=== PATIENT | male | born 1950 | race Caucasian/White ===

== ENCOUNTER 2024-05-11 13:51 | Outpatient (OUT) | payer MEDICARE, OTHER, SELFPAY ==
--- NOTE | 2024-05-11 15:08 | P.CN_ITS ---
Consult Note: HPI Data of Consult Patient: new to practice Consult date: 05/11/24 Requesting Physician: J Carlos Arriola MD Primary Care Provider: Non-Staff Physician, Consult Narrative Reason for consult: low back, right hip and leg pain Narrative: 74yom who presents for evaluation. worsening right back, hip, leg pain that was initially worked up for right hip disease, but now thought to be more spinal related. imaging reviewed, which shows moderate to severe stenosis at l4-5 and l5-s1. has engaged in a series of provider directed home exercises >6 weeks, as well as physical therapy, without lasting benefit. uses otc pain meds as needed. denies adverse med side effects. cc:: CC: J Carlos Arriola MD Review of Systems ROS Status of ROS 10 or more systems reviewed and unremark able except as noted in history and below Meds Home Medications and Allergies Home Medications ?Medication ?Instructions ?Recorded ?Confirmed ?Type amantadine HCl 100 mg capsule 100 mg PO BID 05/11/24 05/11/24 History carbidopa 25 mg-levodopa 100 mg 1 tab PO QID 05/11/24 05/11/24 History tablet (Sinemet) lansoprazole 30 mg capsule,delayed 30 mg PO DAILY 05/11/24 05/11/24 History release magnesium 250 mg tablet 250 mg PO DAILY 05/11/24 05/11/24 History mirtazapine 15 mg tablet 15 mg PO DAILY 05/11/24 05/11/24 History ropinirole 3 mg tablet 6 mg PO BID 05/11/24 05/11/24 History Allergies Allergy/AdvReac Type Severity Reaction Status Date / Time latex Allergy Unknown blisters Verified 05/11/24 15:10 Penicillins Allergy Unknown Rash Verified 05/11/24 15:10 mycins Allergy Unknown Unknown Uncoded 05/11/24 15:10 Exam Narrative Exam Narrative: Psych-alert and oriented x 3. Attentive and appropriate, constitutionally normal, displays normal mood and affect per situation. There are no obvious deficits in memory, reasoning, or intellect.? Skin-no obvious rashes, bruising, erythema noted to the patient's area of pain.? Extremities- extremities are warm with minimal edema and palpable pulses. Lumbar-tenderness to palpation noted in the lumbar spine and paraspinal musculature. Pain is not elicited with flexion, extension, and lateral rotation of the lumbar spine. Range of motion is not diminished with these motions. Facet loading maneuvers are negative.? Strength-noted to be unremarkable with the exception of decreased strength rated at 4 out of 5 in right quadriceps femoris, anterior tibialis. Sensory-no notable sensory deficits in the bilateral lower extremities to touch or pinprick in all dermatomal distributions with the exception to decreased sensation to the right L4, 5 dermatomal distribution Coordination remains intact.? Gait remains non-antalgic. Assessment and Plan Assessment and Plan (1) Lumbar stenosis with neurogenic claudication: Plan 74yom who presents for evaluation. failed conservative measures, as noted. imaging reviewed, as noted. given symptoms and imaging, prudent to attempt right l4-5, l5-s1 tfesi under fluoroscopic guidance. he is in agreement. meds reviewed, no changes. follow up after procedure.
== END 2024-05-11 13:52 | disposition home or self-care (01) ==
LOC: PM 13:53
PROVIDERS: Visit Provider Anesthesiology
DX: M48.062 Spinal stenosis, lumbar region with neurogenic claudication (principal)
CPT/HCPCS: G0463

== ENCOUNTER 2024-05-18 09:41 | Day surgery (SDC) | payer MEDICARE, OTHER, SELFPAY ==
--- OUTSIDE RECORDS SUMMARY | 2024-05-18 10:01 | XMS_ITS | CCD ---
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 Name Role Phone Obdulio Fitzpatrick Attending Unavaila Obdulio Ko Admitting Unavaila ble Provider, None Primary Care Unavailable Provider, None Primary Care Unavailable Malvin Horvath MD Attending Unavaila Malvin Rodríguez MD Admitting Unavaila OMAR Lewis Attending Unavailable OMAR ROLAND Referring Unavailable OMAR ROLAND Referring Unavailable OMAR ROLAND Referring Unavailable OMAR ROLAND Attending Unavailable Allergies Allergy Classification Reported Allergen(s) Allergy Type Date of Onset Reaction(s) Facility (1 source) Erythromycin; Translations: [erythromycin] Drug Allergy [facility] Repository (1 source) Penicillin; Translations: [penicillin] Drug Allergy [facility] Repository Results Test Name Value Interpretation Reference Range Facil ity MR LUMBAR SPINE WO CONTRASTo n 05-05-2024 MR LUMBAR SPINE WO CONTRAST EXAMINATION: MR LUMBAR SPINE WO CONTRAST HISTORY: Chronic but worsening low back pain. Right hip pain. TECHNIQUE: Routine lumbosacral spine MR protocol without gadolinium. CONTRAST: None. COMPARISON: Radiographs 04/23/2024. RESULT: Counting reference: Lumbosacral junction. For the purposes of this report, L5-S1 is considered the last well-formed disc space. 5 lumbar type vertebral bodies. Alignment: Mild to moderate levoscoliosis of the lumbar spine. Grade 1 anterolisthesis of L5 on S1 measuring around 7 mm. Bone marrow signal: No evidence for recent fracture. Chronic bilateral L5 pars defects. Endplate degenerative signal especially at L4-L5. Probable small hemangioma at L2. Conus: The conus is within normal limits of signal intensity and morphology. Paraspinal soft tissues: Small simple appearing T2 hyperintense left lower pole renal cyst. Tiny cysts within the partially imaged liver. Colonic diverticulosis. Lower thoracic spine: Visualized lower thoracic canal and foramina without significant narrowing. T12-L1: No significant canal or foraminal narrowing. L1-L2: No significant canal or foraminal narrowing. L2-L3: Broad-based disc bulge. Endplate osteophytes. Facet degenerative changes. No significant canal or foraminal narrowing. L3-L4: Broad-based disc bulge. Endplate osteophytes. Facet degenerative changes. Mild bilateral foraminal narrowing without significant canal narrowing. L4-L5: Broad-based disc bulge. Endplate osteophytes. Facet degenerative changes. Moderate to severe right foraminal narrowing, mild left foraminal narrowing, without significant canal narrowing. L5-S1: Anterolisthesis with disc uncovering. Annular fissure. Broad-based disc with possible superimposed protrusion in the right subarticular region. Facet degenerative changes. Moderate to severe right foraminal narrowing, mild left foraminal narrowing, without significant canal narrowing. Sacrum and iliac wings: The visualized sacrum and iliac wings are within normal limits. IMPRESSION: Multilevel degenerative changes lumbar spine as discussed. Grade 1 anterolisthesis of L5 on S1 secondary to chronic bilateral L5 pars defects. ELECTRONICALLY SIGNED BY: Cody Roy MD Normal Not Available Provider [place] 04-02-2024 Provider Orders [id number]#1.0 0[facility] Provider [place] 03-04-2024 Provider Orders [id number]#1.[address] [place] [address] Coding Summaryon 02-24-2024 [facility] TtdlemuxVTg4nHz+PGhlYW Q+PH0VYRDbS43paLKnxR6k Q3QMQDpSStkpHWNZTDrYMy UedpIxKN2ejMXyEZIs IC8+NF6jRBLgIlnnjPUzj0 F9uJE2Q30onv7wGUiylNW4 PJEtUcCpwucxl2rdjYc7ID cuNmluOyBt JRCbzN30HPS6rN78Gd42vW ZnuORdb8jhiEv5MdMgHNMl QEW6rKvqDIwpp6MzMHLgY2 2dvHZhn3S5 YVCgqRmmtJSzAlFymGL2vR 7dAHyeleuav4jlifaqMtk2 mf52pKXdq4L4cQC5X3Mquc G8IIBhyRSg WpkwuOKCfN4nbmueu5txiz hcEgItKBJjKMl2SAh8GRZj pYgeQxMiFR73YGH1VWAwkn UyK0UcHZRq oPeeFlI8t3Q0Yf6HC8ZCAt cmF6HJODDDFWsalRA+PC90 zg59K3NpBcqiHxl9LSUzJE W9nUC7fO6b FKBrKUssb7G8lXW7A6Yjgi Gylm7it8hnSPUhDQcuJ67m yGCwy3D8HRVnbBU8WKSxeF hbSqUceQ36 Oyc+WNPpvXrkn9RjHpxfu7 lqa6kewRb3PsqkWLGyyuEs lMfjSMF7j4MnVo4zJKPglX Y7iYX0nF1h OyPaTqH5ISxuF163OnWhgQ HmQmivV58tJ1IojHZ+PHRy Pkl3PYTkmOamCU4eZ4WbCB RpbmctbGVm bYxnPB4sMRBbldrxTGUviP 5gZNFgJ7c6PjHfMyF5JRdy L8XvILJilzyyQs00mT2kNi DuVtN6RChh I7EoeyU6HSTbbVGmOFnxAM N7Z51dt4P2TXXpSTAtGUM2 aUK9hJ8frXfsmmdhaJRapA sgdmVydGlj SPtkLVcpL927RZVwyYogMj NvZGluZyBEYXRlOiAgMDYv MDMvMjAyNDwvdGQ+PHRkIH K3fDtcTCEc jKVoXNxdYo9npLvzhVvtDM 5jKBIvpeazRYJftH6jREMf lSXavKrtEB8cKLBezazsh5 27VbKhZIB3 IFEtqSQeQ1LznS3nBaPgEA MwTROwS2NmiKQrKDybD195 WJtpVpJ6NBWnnyLgY8IrCR FsaWduOiB0 i9Q9Qa4Wd3XhgwlcK4IerR DtKbSoRygqOFr6K2JiAtvj dHI+TO15CUSbRO54PZm6MW Q8nArsPDim NULiK9PciK8tMkEiDOEnJT RkOyc+PHRhYmxlIHdpZHRo QTfnOCGiQqVzhWnkVW8jTf 9yZGVyLWNv uIpqmSKtHpSet3izZMUxBQ fxHS9gtRhoW0KlkQT7KXJr u3z7Qq55G44bH7QifSY+PG HqpFO2hHQ0 dM4nUyCmLwJ7YTrgQ016Nr AraGYoLvxzr9mzf9trvDv0 LiF6KRCkszMxbPphRJB4s4 NsSh72C21c IHdpZHRoPSIxNSUiIHZhbG bdaf8mwO4zBz0+PGNvbCB3 jON1jR4xDrPvIxD4ZCpvM5 49InRvcCIv Coyrz9bqm0kquMz0KoRuDZ QbowDajPguUTF7b5YhSx16 N4KqwKkzh6YeMef5gi08pU Ace5E3sYJ8 U5KsVZJtfnzhwIOpyRnoBG 5iCLJwqkurWXTlrF0bRSTh A6x0CuZdNgJ8ELzvJ0Gaxm B7LASogWEh DBPfkUCXpR3iyaupf7vtci slBcXlOFCzGHb3GQr8VTCj lScjQtWuQKG4WtY3IYI4qC GjqC8dfRbt dntvxJ8dZnb+ZYX1zCJhoW XLET9vOdblfXF+PHRkIHN0 kVkfPKrvCPTirI6oFWBxR0 i6MhNrKaA7 ACzpX5RitfN3NXSbgWKyIR PlhHCQtU6xhfhkw0nramxn XxHoNHClQBy6KOb8NPHsqW duOiBsZWZ0 PoF2IJY8qFTvcM5juZdidd rjiD5uAis+QmlydGggRGF0 FLo6N6QeMsw0XHIhbWwwQV 0ncGFkZGlu Ie1flSaygCiwRA4oMRMxcu hoh385GtKxf8mgTTNdkEXn ZPdiWYE1T53yq0Z1ATZaFD ChQYF5aTY1 eJ8xwQyxdmezfVPghVvila SjdIbcINbwNVlhN743GVHp mBuuLhBgFUa3B4XfXwn7QO OjtPqsZM8w tGCeOEmaTt5lqCczbWfuBZ 3gQIKccbfis449QzOzx3ae VQAtyVZsDLliBSA1Z89gr9 P7KWUzKCZf CZE7iFE8lO5rzYddfsweiQ VmdDsgdmVydGljYWwtYWxp D928UCWygVhsDmLfsDr6I4 VcJrq3UIDh qOxoAK1gbVMuOJlaWr2ioD lmiMrsTG0lWKUpjvkgg074 QtVcn8uaUIXtpNVrXUubAD N0S52ke2M0 STWuTZZhVEL9eSW9uO6nnK lnbjogbGVmdDsgdmVydGlj FRzwTOjkI917IRQjhBbbUp BhdGllbnQg OFvfVUh3S3VhDespmHX+PC 51XGJcPA38nQDbrUGhh8am qFf2JtXuVOZjCEZ9oBvbMT fyi1MlYJBj T13xrUAzv5L8MYYcoMaomS QzIeCylVX8zK8aIDfgyvjk j3bmgbcaBgono9dokq26dX 31T49tHRct ZHRoPSIzMCUiIHZhbGlnbj 1duK1fWq6+KGSpiNO8gIE0 hU4tMNTkPsG5ZYzcJ453Kf RvcCIvPjxj g3orl3wicVq7McN6HPPybi PwjZezEOX1t1OvIl66P76v IHdpZHRoPSIyMCUiIHZhbG xnod0fzX6b Ii8+ZIRviZC8oVJ1qU4xXz FqYpG7LNkqY938PdAlvCTo UzpmV43rO4MbmDR+PHRyPj v0YXPyiVee IP7yqAVtNIkbBn5sAPX4Bm CgXnWjOLlyC1RlRQDgjrud cpjjeAT0DEYwDNOshU23Jv 9udDogMTBw tFSFhN9cwgscj8qvyxqxSb MxOFXaIIf4DOz7HQMdtUjl BdMiAEJ6LcU1EML9zZFrkC 1hbGlnbjog iA0dZ1VfMUEgsbqsDg54xK 2lWeYrWsP0SIalPvs+U0lO Z7qPALIvEBYLP6nTLsMtS3 dFTjwvdGQ+ DUZwIMV6yDudOWrqCDTttZ 3sENXtT6v4EbTcDhW2VCbg A6GrFTOhlsboUy28iF5tAu PuPvQ7BDiv M1RgwaL0OXWloKKiJLjfQK M6L56gv0B0ZMYhLMAiPLQ2 nZM0tB0kbEratrakwSUzfF sgdmVydGlj XMpdNSbnZ299PHVbeAiqLy Y4HqNmQrK1NIU7H8HhLau8 LCZoqUsgTI9rsYFfXNctQz 1yaWdodDog WL6kHRQylzemKVLmkS1eTA IdhMOauOcgJB4aDJXbsvet q191PrVhULJ6EHHgaZGgO0 LcsG6cNfLq TNHnIEDkY5WbnSRcTVscP1 76OThoFjG8XBDyfiFyH2Jo JQGvgHmoYsM9t1K1Fw51Qb BZZWFyczwv dGQ+ZSBwFLN3eAthMYveVQ XtdB6gXYLmV2y1UtUlHoN1 RIreH2ZyAYSdtrplVr07hB 3eZaOiLrM0 YUktX2WuypA3FAYknZKkCT qkSEL2H22ph4D4RQRfOJDr IJY5cSX1wN8wmAxnsnctoE VmdDsgdmVy zXecXSksVUfzR244WSCedU wkOz3WUUG2G2EtAxg1EFAs kJjoMD6uxMVyBAagBm4rdM ormTvhJT4x PAUjmnofAENudK5iIOZxgS TtnYzdDS6kSMNbxdwlw794 SjIhALD8RZGtnOFvQ2ZcrX 9yOiAjMDAw PGAgV0BmbPBwLRntX066ML ubFdI6GKYrgiYqX5QiECYh mRbtZrE7c6W7Xs2UFXM2ru HgmwiqM1E4 mNR5sIIxoQprpIN+PC90cj 74J5VsTdyrPpl7NBFkIHO4 aJR0wL7nVMRgJTnqe2M8lT A7U1EarfQr xu3on7yxYQVlOAlkY90qaQ Kls6B4DVBliDM0GBSzlRzu WmNqgD24Yxq+PGNvbGdyb3 VrQieeq8kn x7gvuHl9LcOyUNIzbbWeoO fzPON1b4YlMl93G04qNUpy ZHRoPSIzMCUiIHZhbGlnbj 3phW2dIb4+ WWYohKV8pAA8vS2wOdXoCo F0FOvzW784BpGqeGVfDlub u3whe8driJu2ZaBpFIBkdv FsaWduPSJ0 g3WnKl01Q8TxsOdyh4MsIp v7yp56nWDry5Y1aAB3P8Br YKJoidwifBPscBthEP2tBH BpbjtwYWRk zM7dETBkN9b6JePmYyQ5VJ cvU0IjguW3VRFepQDtDOQr jUVBwF1ofqcgd5zneghlEp AwMDAwMDt0 ZCv9BHXmdHdnMfAeLKY6Je G4IKN6dLOsiS5qyLbdcget vI2uHru+UOy5k6wyqOQcZY 1veEH2UI73 ZE84zBCcr1D7tLI9E9ScPP CxypayqmhxqHG3DHGeJXJk qR40Tw6liXasKc4nKRAnSO T6RKIpyHLv M9FliJ2pKoUuFPSeIPVqF8 PhcXGcBLxwJ060NClpOuI9 TZJtefQcX7ReOIRwyFwaQq H7m0Z3Ij6W WR70CR71XY97dKLim0X0kM C6D8TdTLQiwkdrpmopfWD9 XANpOLMpnV18Oe9qqSjbWu 5pDZRlGXO2 YEPbuFLvX6UzrL6cIvBgMI RnGIVjY9JriGNxLFmdH938 ECjsNvE0JMJczoRpG7HpEC FsaWduOiB0 q6X3Nw9UUh03SS67FA84qI Fwp5Y8hWX4D5FdVGEgntdz hnmtxNZ5MFQkDKMpxT38Yd 1owXsbHw9d SSZxIPT2RIVxuIMxH1BvnW 0dEqAwJEItBLQxN8EioBOb MSmlN032DYtuVoH6GVEhke XtQ5KfIKGt xIovWkU1k1T7Bh3YSZyzdc i4Z8GmVdatcNP+CX12HKDf UM55zFEokRKbv9bjzXc0Dn EwMCUnIHN0 eWx (more content not included)... [facility] Provider [place] 02-14-2024 Provider Orders [id number]#1.0 [address] [facility] Coding Summaryon 05-08-2023 Coding Summary [employer] 64 SnmtydukQGx8lRk+PGhlYW Q+VD4ULQCeF50jaUEztT5j J1ZTAPiSFfcwRYYPJWdTBc VggrCvWT5seSLyLEMo IC8+BZ4nKLTlYlmlkJMja8 D1aGQ8I62lhf5bWMzhiAI5 XFJoKuAuzcfrt2xnzCi3IG cuNmluOyBt JCSpzU24JAP7gO20Hh78cD XkcTJsb6hjaLx2SkJwZTFr KHG1qZdkDAgfl2RnAPAfH8 2jaKBwe9L8 KLXqpBvrrCJnWxTuqDP2yX 5oVBfymewph1bkjqwnLyu2 su41eDVnn5I0wRC7W9Jhrt D6OSWouWXt JmbqgLCYpU2zhnlvh3xmfw gvQoKaVKJaSFa9NZb9FCYq qRkaCtAcXV81EXU1WBUidm GeT2XlNQTq iVxlRmP9f0Z3Hy0KW5MDGl htU8MQEKUPZWfrcUC+PC90 wz99L0GiNgoyNoe8WDAiWD I1cTR1eA8x DULbTNerw4O7oLW0E6Rvqa Uios3dt2nsDNEaUCjrC95u tELtz6D4VKPcqBU0VVMmfQ elOxKhuC90 Oyc+ZKHswJwil1OoQsfua1 zhc0csfBc4YypeHZBgntTh sKdsMZM7e9DqNg5eSMYunS V1lKY1oB1s LjRkLcE0IHqbV102KoVrqU VtLwqwD67fP3YnsAD+PHRy Khf3EZKnnLowXT3fT9GoUE RpbmctbGVm pIcjYH9dKONssymuWUZbsY 4wGBWaW2s4FpLxIfA0LDbw T3KmIPEwoxepNc64jN6fYu AaPoG8XHnm R7QkqfN8DXUoaBCfBNjgGD J1R61fs0I4YTOwYVPvVHH2 iDZ9bQ2geBqddbimaEYrfJ sgdmVydGlj GOtwICklM420XIVetKcvXa NvZGluZyBEYXRlOiAgMDgv MTYvMjAyMzwvdGQ+PHRkIH D8xFapYEHv wTPeKQjcNc1ulAmayCdlDM 0wUWIttovuPZWjxD6rWITb zLQoxDgmLO9eQHDfkunre6 22KbNxAXH9 GZHyeQKzH6EcoE8qWeSvHQ QpAIPvV7AuoJVzNXntV368 BPhsAtO1BVTkdtMwU7EnAZ FsaWduOiB0 y2R2Sz2We5HapbniF0MpzD JqIfClRdgaNQk5W9XcZdla dHI+LM49FHUrCN79RDi9WA U8qJpnCElj WLBtE7ClkK5aJyZwCYYtDR RkOyc+PHRhYmxlIHdpZHRo TNicZTVrOrSgtTnySC3dJo 9yZGVyLWNv kAzthTEtZoNic2huICEqGM vnBU3owAlgH9AgtZS0ZZJo o0r7Py27Y52fS9KidWW+PG MlmVZ0eKN3 kN3kOzEaFiM7HYydL301Ao KpxZQjQkvfl1tuc4wxtHv1 KaA6AGKypmUepHfbEJZ9r8 MnUi15N19m IHdpZHRoPSIxNSUiIHZhbG snss7hrL2gFc2+PGNvbCB3 bRN8sG3oWiDlEpW4GCfoR4 49InRvcCIv Wlxjk5cit4cmbRc6LvFrJH VdfaGvbUbiSMC2q8TjIg83 T5EdxYyrc7TnGuf4vt02qT Gts3Z0sIA8 Z8ZiPHSeemfkkHApqFmmUV 7gIFBzpjneHHDenO0dIURb H3a5MgHgStA1ZXdxR6Vtmo S7GQMbvIXl KZPllZWRuW0bnagyx6gyco wtCoUwOFXfWUb1WXu4UMLs cXgsCyYbBPB4QcN1OAC0cK EowY6czGpk gcazvV2gOvp+CLB4pOTnlA SLIF6yZyaphEL+PHRkIHN0 jSvyFGwrWTVuuQ2iHOIdG1 o5AdLgXcF9 NKduK7RxlmM6KUIchBUkQX OnjWSTzG6lewomb5odqcpi HoLaSFCdLFi2FGg7CNBerD duOiBsZWZ0 DwQ7KEX7eFOefM9ofWcybu zbvJ5bLcp+QmlydGggRGF0 TIt0M7CtBzj0KFIjtFlgRR 0ncGFkZGlu Lb8rlYmoxCvaSB1nXDNngn vge432HcWnd7hzPWHqqSGr AHqjAMF9X69lb1C0ZFReCR QkUDA3mZM3 eF3zgZcfxiryfLIguMplfk XrvBbjUVkiNJjwN921PYGs jAlgMrHdNDj1J2DwPmv1UQ ImrLdnEZ1i bAMzHHfjXj6ooFvlaZajOW 2aURLdenixz761SkKih1om LFPjsGHkKVclWOL9M27oy4 E3OXAdHQOu NIK3oPZ5lO2ydSjhiayecX VmdDsgdmVydGljYWwtYWxp R912WKDdoOmyVmIpkVq1G1 SpZsi1FKJq mOyvQC6sqVYbGKibBo6ijH ytnJyiBN0eGZAapzzvj172 LzQhk4vpSLYqeVYlYXphJN Q4Y65ff0P2 GFYbZLTwXNZ7hZJ4xY7xzH lnbjogbGVmdDsgdmVydGlj UXshYFqlF351WDRqhWoxFc BhdGllbnQg NNtlHTg1H4HjOhrwuNR+PC 14RXQrBM56xEUutINdd2ku cHp3PaUbZZYrZQV7sYqoTP vlb8WcUNFk X58qaLQdv9X0BCFamJhndJ TpPtBjmPJ2dQ7nEXgyizoa q5jshkziVuqhp3dkmz72dI 58V12dGLqr ZHRoPSIzMCUiIHZhbGlnbj 3wyQ7dTs8+WEYozOL8wNR4 iU8dBJMkRvJ7BUhcS442Hd RvcCIvPjxj f4iuz7avzTf7QaT8JIJrqp DweJmmIPJ2u1GzQm77T93o IHdpZHRoPSIyMCUiIHZhbG upvw3feB3g Ii8+PXTxeRZ8vDH7sB5eAf HtWbI1IOuxZ940QhCsvOEh PfscM44zO0KmwSX+PHRyPj z2HNVmiOrv VM3uzIRdPFmrKk6lPEW8Px OwJiJkGTaqK2GvHUGxdqyj cheymWK1MVKgYQXpmC75Mb 9udDogMTBw dXLCgD1ghpllw2brcychQx QwIIGeVEm7JHl8NCQxqBzz AjChIGD5BuF7DDS4eAMslV 1hbGlnbjog nY4qU0YgEPHlocosYg43dZ 1sKlJsCmY8ZNxsAdq+U0lO T1uSKTYtMHSIN8yOPrJxJ3 dFTjwvdGQ+ KZRkZUG5mFqvKMwcZJVthU 0fJSCdV5w0GhTfBgP9ENyl M4XsKPKnitymDm05rZ4aAq GbEkB3DLmq L8XcswI3EBWfeQTxKDeiOE S7S51hp8S0IAHhYOQeWRO4 mNT8qJ5gxXoucvuxhXYkpB sgdmVydGlj LTqcQGefJ018EPCeuTmfDq O9NjSaKsP2LCU6J7QzGpq7 GDLiuIbpIX2ujGBrDHzaPm 1yaWdodDog GM7fCWZbuwvqMENntI8pBC QxlQBuyCbnNC9nVKNgpvmy y036FjBwJCG3YZQzpVZoG8 BenX8xEgAy XTOhZQXkD4WonKVgXSilU8 52ESncQxO2OWIoutPyM3Lx RWSxmTqmNpW2g5B9Tc66CU BZZWFyczwv dGQ+HEOzUZS9aCuvYWniSI PkoY8dPBIeE3e0SqNyZyT0 JNvgM8OkMAUuymrxVx39eQ 4gEoZjQnA6 WWvzQ2GcumQ7LBNdeQJeDE qoEZD4Z33wz1I7HWApWVQw NHR0hAP9gN2adGrvtfcwiS VmdDsgdmVy aVxgWCfiWFzqK251KPJwzX scRa5JICS8N9LlZwj9UTBb eHmwQK5ozGQcBBjsUi5mbN hrgYyuKM2b MFTidmgxPGKjlF3sYTZmkQ SrpJiqQM1uFCBejzbag889 AsQvIRP3RKWsxESzL3GbgP 9yOiAjMDAw HRBfR1QrfOKbKKsgJ066YD skYqD4LZRyliQqO3KtIWJx zUytDtT1i6M0Om2QGKhafY Q+VJ58io45 V4VpViajXio6IOVvDJO5yZ J2hQ4sELMmBPcwe0K5pGH4 X0ZznkZvpg5wt6vgFXMmIM fqG18nuFFq q5M9UDAvhYY9GSVgoQneEk OgnV32Zji+CEKziWryf2Qv Ksgyn6pew7afkCc3CiKgUS IgdmFsaWdu HQP1q7UmFt80O82hHMmrHI TsSQKaUIZwFHMqnGppaq0m dN1dGq1+PWMvmZF3mAO2wG 2rKeWiWbB3 AAuvS289XnAjvABbNejpb5 ljd6kxgVf6AhGjIPShfnZl hKhcWSH1h5XxAz89U0GwxD ovd4RqHdt2 mq47mSUsq1L9aDX0K1QgQZ JkgzhvpKJhuDjcHE4mUWZp rvxeYCWsfM7rOZXmT1b4Rv QsVnB5XHec D2NljhO7TVFfaVUcDDTvdF EAsK7hviucw9adprrmZhRg BLKnJCz5OOx6HTObxUudZn GrKIY3YbY4 PBD2qVZgcQ5idOqepiwylN 9wOyc+LQt2w2wlhYRfVK5k dIZ6II11TI51fWYgp7P7lV Q4Z7LiMJRz jpjypxfdfEE8VTFoEJOobR 97Kw9lkNgqMo0bNTOtUFQ3 QTPaaXYnM0JtaR8tHdWnXQ RwZCMzT5Yl qMWrCXzzJ714VHeyNcV6EX QinlJyG5DeXLXazDthKwH0 c9Z0Fw3DMU15EP88ZS59lP Fsn3E4bCB1 C3OrGVQcbwqnodfvbSZ6KN ZfNHBjfK42Ga2iaJcjLc4h CBZhGZS9WZOcdEPqW9HvkF 9yOiAjMDAw SKXeA0GiyBGzMAkkS120ZP uhOsQ4KQOzqwBxC4CeOPMx pJfkJrI8x6I4Rj6ZQi54MB 11BY65rHSf g2C4qTU2S3WbUZBcqlaowx hbiOO0RLJfIBHcrD81Lq2m dFrvJe6wXUNyJKM1ZELfyG NdO4IqkB1x MvSuSHNuZURsQ5BhsSBgQX dbG672NOhuWtX8LWAaszHu O7HsBAJwhDmeBnM3q8P9Sp 0DBAnzsqv0 P7PeRsleaOY+RU52TABxVC 81zGLnoIUky7vthZq7XoUa GRPpXNO0iZfoJDujt2HyMU OzZ75pzUXu c2U (more content not included)... Normal [facility] ED Clinical Summaryon 2022 ED Clinical Summary [facility] ? Urgent Care [address] [place] [address] Clinical Summary PERSON INFORMATION Name: MERY MCALLISTER Age: 73 Years Sex: MALE : 1950 MRN: Acct#: Visit Reason: Foot pain-swelling; RT FOOT PAIN Arrival: 04/29/2023 12:12:18 Discharge: 04/29/2023 13:44:00 LOS: 000 01:32 Check In: 04/29/2023 12:12:18 Checkout: 04/29/2023 13:44:00 Address: [address] [place] [id number] PCP: Provider, Unlisted PROVIDER INFORMATION Provider Role Assigned Unassigned Antonia RN, [place] ED Nurse 04/29/2023 12:13:26 Britt MACKEY, Obdulio Coy ED PA 04/29/2023 12:14:44 VITALS INFORMATION Vital Sign Triage Latest Temperature Tympanic Temperature Temporal Artery Pulse Rate O2 Sat 99 % 99 % Respiratory Rate Blood Pressure /76 mmHg /76 mmHg MEDICAL INFORMATION Medications Given: Allergy Information: penicillin; erythromycin PHYSICIAN DOCUMENTATION DISCHARGE INFORMATION: Discharge Disposition: Home Discharge Location: Home PATIENT EDUCATION INFORMATION Instructions: RICE Therapy for Routine Care of Injuries; Tendinitis; Hypertension, Adult Follow-Up: With: Address: When: BLAIR WELLS DO [address] [facility] [address] [place], [place] [id number] Within 3 to 5 days Comments: Diagnosis is swelling of the right foot with component of tendinitis, from history of been having pain in the right foot for over a week. The x-ray does not show any evidence of obvious fractures, has not been read, but afterwards read if there is any changes in diagnosis may contact you. There is no history of trauma or fall, but you do walk 20 half miles 4 times daily and 15 minutes. This may be overuse. We are providing medication in the form of Celebrex which can help reduce inflammation, if you are taking this medication do not take ibuprofen, Advil, Aleve, or any other NSAID. Make sure you take these medications with food. Also provided you a course of prednisone. This may help reduce pain and swelling. Keep the foot elevated above heart level when sedentary, consider using ice therapy, the Kulwinder wrap, and/or compression stocking as we discussed. Follow-up with the listed orthopedic surgeon next 3 to 5 days for reevaluation. Return for worsening symptoms or concerns. With: Address: When: Follow up with primary care provider Within 3 to 5 days Comments: Blood pressure was elevated in the urgent care department, provided you information on hypertension. You may follow-up with your own primary care provider next 3 to 5 days for reevaluation, return to emergency department/Urgent care for acute shortness of breath, or chest pain. DIAGNOSIS: 1:Localized swelling of right foot; 2:Tendinitis of right foot; 3:Elevated blood pressure reading Patient Understands: Yes - Patient/family/caregiv er verbalizes understanding of instructions given Comment: Normal [facility] ED Patient Summaryon 023 ED Patient Summary [facility] ? Urgent Care [address] [id number] PATIENT DISCHARGE INSTRUCTIONS Patient Information Name: MERY MCALLISTER Age: 73 Years Date of : 1950 Reason For Visit: Foot pain-swelling; RT FOOT PAIN Arrival Time: 04/29/2023 12:12:18 Primary Care Physician: Provider, Unlisted Attending Physician: Obdulio Fitzpatrick Comment: Patient Education With: Address: When: RUSSELLBLAIR Deb DO [address] [facility] [address] [place] [address] Within 3 to 5 days Comments: Diagnosis is swelling of the right foot with component of tendinitis, from history of been having pain in the right foot for over a week. The x-ray does not show any evidence of obvious fractures, has not been read, but afterwards read if there is any changes in diagnosis may contact you. There is no history of trauma or fall, but you do walk 20 half miles 4 times daily and 15 minutes. This may be overuse. We are providing medication in the form of Celebrex which can help reduce inflammation, if you are taking this medication do not take ibuprofen, Advil, Aleve, or any other NSAID. Make sure you take these medications with food. Also provided you a course of prednisone. This may help reduce pain and swelling. Keep the foot elevated above heart level when sedentary, consider using ice therapy, the Kulwinder wrap, and/or compression stocking as we discussed. Follow-up with the listed orthopedic surgeon next 3 to 5 days for reevaluation. Return for worsening symptoms or concerns. With: Address: When: Follow up with primary care provider Within 3 to 5 days Comments: Blood pressure was elevated in the urgent care department, provided you information on hypertension. You may follow-up with your own primary care provider next 3 to 5 days for reevaluation, return to emergency department/Urgent care for acute shortness of breath, or chest pain. RICE Therapy for Routine Care of Injuries The routine care of many injuries includes rest, ice, compression, and elevation (RICE therapy). RICE therapy is often recommended for injuries to soft tissues, such as muscle strain, sprains, bruises, and overuse injuries. It can also be used for some bone injuries. Using RICE therapy can help to relieve pain and lessen swelling. Supplies needed: ? Ice. ? Plastic bag. ? Towel. ? Elastic bandage. ? Pillow or pillows to raise (elevate) the injured body part. How to care for your injury with RICE therapy Rest Rest your injury. This may help with the healing process. Rest usually involves limiting your normal activities and not using the injured part of your body. Generally, you can return to your normal activities when your health care provider says it is okay and you can do them without much discomfort. If you rest the injury too much, it may not heal as well. Some injuries heal better with early movement instead of resting for too long. Talk with your health care provider about how you should limit your activities and whether you should start njydn-kw-hlrwlf exercises for your injury. Ice Ice your injury to lessen swelling and pain. Do not apply ice directly to your skin. ? Put ice in a plastic bag. ? Place a towel between your skin and the bag. ? Leave the ice on for 20 minutes, 2?3 times a day. Use ice on as many days as told by your health care provider. Compression Put pressure (compression) on your injured area to control swelling, give support, and help with discomfort. Compression may be done with an elastic bandage. If an elastic bandage has been applied, follow these general tips: ? Use the bandage as directed by the maker of the bandage that you are using. ? Do not?wrap the bandage too tightly. That may block (cut off) circulation in the arm or leg in the area below the bandage. ? If part of your body beyond the bandage becomes blue, numb, cold, swollen, or more painful, your bandage is probably too tight. If this occurs, remove your bandage and reapply it more loosely. ? Remove and reapply the bandage every 3?4 hours or as told by your health care provider. ? See your health care provider if the bandage seems to be making your problems worse rather than better. Elevation Elevate your injured area to lessen swelling and pain. If possible, elevate your injured area at or above the level of your heart or the center of your chest. Contact a health care provider if: ? Your pain and swelling continue. ? Your symptoms are getting worse rather than improving. Having these problems may mean that you need further evaluation or imaging tests, such as X-rays or an MRI. Sometimes, X-rays may not show a small broken bone (fracture) until days after the injury happened. Make a follow-up appointment with your health care provider. Ask your health care provider, or the department that is doi (more content not included)... Normal [facility] Urgent Care [place] 023 Urgent Care Record [facility] ? Urgent Care [address] [id number] PATIENT DISCHARGE INSTRUCTIONS Patient Information Name: MERY MCALLISTER Age: 73 Years Date of : 1950 [facility]: [id number] Reason For Visit: Foot pain-swelling; RT FOOT PAIN Arrival Time: 04/29/2023 12:12:18 Primary Care Physician: Provider, Unlisted Attending Physician: Obdulio Fitzpatrick Comment: Visit Diagnosis: Diagnoses This Visit Elevated blood pressure reading (R03.0) Foot pain-swelling ([id number]) Localized swelling of right foot (R22.41) Tendinitis of right foot (M77.51) If you received any narcotics, sedation, or any other medication that causes drowsiness for the next 24 hours, unless otherwise directed: ? Do not drive a car. ? Do not operate machinery such as power tools, lawn mowers, drills, sewing machines, or stoves ? Avoid alcoholic beverages and drugs for allergies, nerves, or sleep ? Do not make important personal or business decisions or sign any legal documents With: Address: When: BLAIR WELLS DO [address] [facility] [address] [place] [address] Within 3 to 5 days Comments: Diagnosis is swelling of the right foot with component of tendinitis, from history of been having pain in the right foot for over a week. The x-ray does not show any evidence of obvious fractures, has not been read, but afterwards read if there is any changes in diagnosis may contact you. There is no history of trauma or fall, but you do walk 20 half miles 4 times daily and 15 minutes. This may be overuse. We are providing medication in the form of Celebrex which can help reduce inflammation, if you are taking this medication do not take ibuprofen, Advil, Aleve, or any other NSAID. Make sure you take these medications with food. Also provided you a course of prednisone. This may help reduce pain and swelling. Keep the foot elevated above heart level when sedentary, consider using ice therapy, the Kulwinder wrap, and/or compression stocking as we discussed. Follow-up with the listed orthopedic surgeon next 3 to 5 days for reevaluation. Return for worsening symptoms or concerns. With: Address: When: Follow up with primary care provider Within 3 to 5 days Comments: Blood pressure was elevated in the urgent care department, provided you information on hypertension. You may follow-up with your own primary care provider next 3 to 5 days for reevaluation, return to emergency department/Urgent care for acute shortness of breath, or chest pain. Medication Information: The exam and treatment you received today in the [facility] were for an urgent problem and are not intended as complete care. It is important for you to follow up with a doctor, nurse practitioner, or physician?s social services assistant for ongoing care. If your symptoms become worse or you do not improve as expected and you are unable to reach your usual health care provider, you should return to the Emergency Department, we are available 24 hours a day. For those patients who have received Radiology results, the interpretation of your X-ray as given to you by our Urgent Care physician is only a preliminary report. The Radiologist will review your films and if there is a change in the diagnosis you will be notified by phone. Please make sure you have provided a working phone number so we can reach you if necessary. In the event that you had a lab culture while you were a patient in the Urgent Care, you will be notified by phone if there is a need to change your antibiotic. Please make sure you have provided a working phone number so we can reach you if necessary. [facility] has provided you with a complete list of medications post discharge. Please inform your beater out leveling machine/provider of your visit and for further instruction on these medications. Any specific questions regarding your chronic medications and dosages should be discussed with your primary care physician(s) and/or pharmacist. New Medications [facility] [id number], [address], [place] [id number], [phone] celecoxib (celecoxib 200 mg oral capsule) 1 cap(s) Oral 2 times a day as needed Pain for 14 Days. Refills: 0. predniSONE (predniSONE 20 mg oral tablet) 1 tab(s) Oral As Directed. Take 3 tabs by mouth daily x3 days, then 2 tab daily x3 days, then 1 tab daily x 3 days. Refills: 0. Additional medications on your home medication list not specifically addressed. Please contact the ordering physician if you have questions about these medications. amantadine (amantadine 100 mg oral capsule) 1 cap(s) Oral 2 times a day. carbidopa-levodopa (carbidopa-levodopa 25 mg-100 mg oral tablet) 1.5 tab(s) Oral 4 times a day. lansoprazole (lansoprazole 30 mg oral delayed release capsule) 1 cap(s) Oral every day. rOPINIRole (rOPINIRole 6 mg oral tablet, extended release) 1 tab(s) Oral 2 times a day. Visit Informat (more content not included)... [facility] XR Foot Complete Righton XR Foot Complete Right CLINICAL HISTORY: Pain and swelling of the right lateral foot. TECHNIQUE: 3 views right foot COMPARISON: [None.] RESULT: No acute fracture. No dislocation. Mild scattered degenerative changes with small osteophytes. Mild soft tissue edema. Vascular calcifications. Small plantar calcaneal enthesophyte. IMPRESSION: No acute osseous findings. Final Signed (Electronic Signature): Cody Roy MD 04/29/23 1:27 pm Technologist: KELSI [facility] Coding Summaryon 04-24-2023 Coding Summary HTMLBase 64 YjwticreTBp0hPu+PGhlYW Q+BP7BEBNeJ61vdOSbeR8l R0RXLOgPFergJTIUJDgSQt GvmxUpAO1myELnCNRb IC8+RO3hWJFaGqmzmIMbn9 N9kJI7N34svr6pNJyhjCT5 RIWzXyAnatbme0fdtWu0NJ cuNmluOyBt OINvmQ66DKW1qV47Ec11kH JgbRKlh5vhkLs2ExOsKNFc MCK9hKjkUWbyd8XzSFLsF1 6yiLNtx7F2 LLTyvIwzpSJnDdFvjCV0nK 9qRVlxsxcgc6vaedzrMoc1 cp18hYKcl8E6rKN4H8Bmkq Z2WZUutBWh WhifgSNHmH7lfdmnq0vywm crZgLvGAGtUEt2SSr1YWWc rDlrKbMpZU18WKS8CERvnh HjI7IhBQUl kSnsFtB3n6L7Fo4DR9VDGe mtC6YQXMGNVAxumYI+PC90 pg45Y6YgZygoHoy0KVPfEQ D1dBZ4bF9k KXDgXTyis8A6nCY1D1Zugt Yogg2au5kdINXrGUqwD66f gTAgp1M5CKTbyPX9IBGhyX zfWrPprB15 Oyc+UDGeiQeta4VqUuxjg5 gbf6ryxNn2LrbzSQRodzFv jIqdLDL0z2WiFw2pZIRnyV L2rWK0kI4o NuIzYyZ4NEqiE413LqKtaL QtUzqlP40cP7MkjEN+PHRy Tqo8JTIaePygWN8sU5PyQH RpbmctbGVm vInjJK5xXMBxmhxnVUYgyG 7ePQHlJ7o9KbAvMwS1RHie K8DnDRCfzmhjCi00cV3yWb WqOvG6GZdk N1HjqlC4TLGmhKEoEMbwDC C0I74xz8W2MXCeOJOsTQP1 fFI5rA2oeLxlxcfllNUucY sgdmVydGlj CFajPRurO767RRXgeDqzNg NvZGluZyBEYXRlOiAgMDgv MDIvMjAyMzwvdGQ+PHRkIH Y6yVrpPGAc bVGoLYtdYn6lbBdmnLaqUB 1oXFJtkorfWALnlM0uCUOr gLFntQjyKZ0xHXLomfrci0 85SqKmOZU9 FXNaqSSjQ7CwmC0mBcMxNY TvUPRvT4RzmKOrNFhoJ971 ZGgzRtZ0KUVnfhGdN4XcOA FsaWduOiB0 q8J9Ru1Gz6DarrsgL3CifC TjPqTkFvzgNCx6V0YiHgqa dHI+NN85SPRjSU53RSe7MK A5wSxaIGkc OPJsY4OytE9fSsWfWEGfGX RkOyc+PHRhYmxlIHdpZHRo ENkkOMOpUgSiaDymMD5lWk 9yZGVyLWNv cBzzfEHbQuVjg6csZPPqUX hfNC5icZhhG7QinRN5MLTo z4z7Hc96W85dN4PymBQ+PG WutTN4zVE0 wK3cUnQkXkC0PEzmZ621Mp BjnVWeVptgi7ulj7sqsDo3 TyZ7XNKowuBwnUywVXI0e7 FzGw68I67b IHdpZHRoPSIxNSUiIHZhbG rcfj7gtB8oFd9+PGNvbCB3 fRX7zR0qLuArDcS4GFlnZ7 49InRvcCIv Uvrln5fus3hvrAa6QdScEQ UrhrAwiCsqMHS6z1NsPk86 E1FylMvkc6VsByp9ho94dZ Thc3Z0kSR7 H9XpARChvmrheWCegHnfAJ 3vLKCbgbcmCYAwlT8vIBKn T6d0GpViZaC9BOqsG2Sayg T1CRKhiVHt LSFgyDGDaT5cnradd6ciis jdHqSvRJMaCMg0SDk1LNHo eToxMbLzVGA5QsL2LDF6qF BluU1lcKfx zhgteW6xTnb+USM9qIGgpT XAMZ3fUsaeiRJ+PHRkIHN0 fCycSFaiKELriK0iUIQqK7 a0ZuGwZjN2 QJttS6OlpwQ3NHZzeBBtCF FdcXOWwW4giyqdt2hlmrxi YwIwJZBfNBy1BPs4SQScjI duOiBsZWZ0 OrS8HKE1aTTlkA2urSambg ebvC1mXgt+QmlydGggRGF0 WOg2B8BkEnd9BXKhrQriGI 0ncGFkZGlu Af2aeRimmFxcJA8mBGKkdm jvl196ImGwu5viWBWvgLRq DEinETB2O45ux6L4XQHkKO QaGHO8dVZ8 vA2igYwrbruvfTKylQczdf IwpLriONwuHNbvY641HGMv oXrbLcUkMGv0W3PyRzs2TB DzeSvwEE0n iWJrVLxzAf1nxTdeaMxvXC 4iALSwepdaz736TaGkx5ij TOUraCCxKQysLAB6F57md4 L3RYHdPPUd FSB7kOK9nY9ssPxxoaoaiA VmdDsgdmVydGljYWwtYWxp Q286BMExbUeeQfVvfKz2Z4 NlJzi7OQJu oHvqLV3jsQEcXWjqNx0zaU qvvDtqLB1jJLTkoymeh365 JwKdr7jiTRZmtKBoAHkqAK O3X67vf5E1 SKKdNLVpUYK8qBK6sR9wyK lnbjogbGVmdDsgdmVydGlj HBmkWYqqQ013UDNliPljPc BhdGllbnQg HKuvVBy4A3HvAfefoVB+PC 84KLLmKI71bJEuaRQkr0vb fZw4GzJbOHOkLJI8dYihXW dha3WxQZPj D64rsIPtt3E8QHOgmTqmxG JoIsDkgDT4sY1bEVbeozxt w6nhxxbnMzizz3qrim30iT 73F26hNJuc ZHRoPSIzMCUiIHZhbGlnbj 1sgD8rSw0+VWAicPE8mXG3 qK8wEUPrOdK1SFytU978Eu RvcCIvPjxj y0cbg2cwaJj1ZpQ4RUDkcw LvqUjiVMW1z6VsPo09G52p IHdpZHRoPSIyMCUiIHZhbG smcl4dfX8x Ii8+EXQyaEQ3nLK1vV3uJy XeWvI2AYkeQ229SlFzfTNy NwabN99jT4AvsXP+PHRyPj a2NDGqcIms TE5nfMAtOKewIv9qSRB2Gg JmKoUmCHzuT7FvKLDctacj emxjgLK6YBMqWCJmuW86En 9udDogMTBw cBKZgE6pejmti3ufafbwFl XdJEHyBYj8MIe6JEPxxNgm CeXsYXC7ReY3BMC6xOQqrB 1hbGlnbjog oV3uA8ZiFJHdvontRd01tJ 9tSgQgQtN2GPllGem+U0lO S0fMQXIoPOTBX5nSRdRxY0 dFTjwvdGQ+ UZGkFMY6cRbtRNwnDIBowT 4oTQYrV4i4XdUbJtP2WGbx G2McOMDqyjiaIw71jJ2iRx ArKzV5RVbk E0SewuH6ZWOyeTNzNCnpJE I5K32nl2D2HBUcTUBcHNE3 eMQ8wV2zlQmylnlvmREeiJ sgdmVydGlj IOunOWzsC002JQKzyYtfXh H9QiJoSzM6XSI1Z2ElRvu0 UVAszZvfTG2khIMzIWbhLk 1yaWdodDog BZ8jENLythawQXPzgL4xES NzzWTzfSocTA0iWQCrixml p698ZqHiXZQ5CDNytVUrQ6 TiqY0eAsZb KVEkNNHfR1LmsCZnPPabQ5 80OAunOaH8DLQmxiMtE9Ic CDVunBuzTlS9c5Y8Mc45UQ BZZWFyczwv dGQ+XSHpSZC3rQkkPHmoIR QnoB5vQUYlL7a8CzYsEtB7 QZmeJ8LhVAInbjmiHt84tL 1qQbGwObR9 DAezS4AvcaH1ZMVqsLAwUI syPYV2W39av5K8IDWpVSMk TOA0mZW0rQ5clTofmoxrbB VmdDsgdmVy wBcwUKjrSImxD798XQLgrY puWi7FTGJ4C1PnXns1NMEm iSejNB2tqSSmNTnzTe6jfQ ulzIaoVA9v FUWsniwcHIEpsR5zIFQxiX QcoTonQM3bNGTzgflkp546 HyZcVUK3QIHeiGElR5SfzU 9yOiAjMDAw RTCyK1LugLLbNFbhS219XM mzWbE3PYYdvbLhD0YuBFJm lUadOgN2x8W7Lz1HRUkedP Q+GX82by24 I9WtRjouSeu2FTPrJUF2bV H1pO1aMCMrKRcod6Q2cVJ7 H4ZmctWodc0ij7qbFTBjFC yqP11ngMTe k1X4IXNenDK9TISnxTskKs JimU62Sex+YYKbtWmuu5Zv Vsjjw3qxv7nnrPg1PhFqLT IgdmFsaWdu OPO6k6HsDc50J62qYJvbXN XdRLEpOOBcQDYcyLpujy3n kS8vHi5+TFNmdZE2yWA4tI 5sGrWvXsN0 XLoxN073BdSpbPHdVcatj6 kzk9jxyBy1KsDgCTRqceBv vKohDHV9t8SbWb56B0OjjL srt0IyKsl0 mx81xSPkk1M7bFJ2W8WcQO RrqggeiYYpxOcrDL9yCRRb dushMIVtxP3rBTHkK4e1Mt UtUeH3QHaj N1CnmiO0RRVvhHGdMJOrpS VIlY3nvusnv8jpdjicUuDt WDOeVZy6DJo3PONwpFvzQn GpOFU0TwV2 IOC0pPDyfU4mcBwwaxmnwF 9wOyc+HGa9w8sncKNuUZ1c aCY8YK90DJ48mXByi2E2zW U0H2VmDBXc koweqxrddXT5OSTkEEWpxU 46Bh6kaLfqBn1hVTEiRQI5 NDLhuABjR4VlqI1cMyAySC CiIEJhY2Gi hAOhVOpjK012XDqqWcN7HF CqidBmJ2MsBLXgfJsoLqI8 q7E5Br5ORQ96VG22VH60oL Zfa7V0jML4 V4TmYFXalclekdhckRN6VP JkFVMmzG43Df1wlXpeUo1c QBSiKMR5TFRqqRQuC2AjdJ 9yOiAjMDAw FAUuW3TdzZWiUKzfA317SL tkRtB6LHJzywQrR2MpSLEn wTecEdD9d7L3Qw2VHf48NL 79ZK83oIXx q3O2fBJ7T8LtSJRvkyqhmf kvgQR6WXCaQYWunB13Nt8w sDsbMt1hVLBwSZK5BZLfzD ScZ8MhmE5t WqEaQVDrKLQvE2AtyPVxUP jbP744DYczOsW1OLGwrzPe H4PaAQVmlUcqTyU4v4D5Uk 3WAJfzfjb0 K2TxQvgdkPK+EI68EFSwQU 30jKQlnIFrj9wouPb2YoXj WITgREX1eEsuJGljc5YaCO NpO02zqZGi c2U (more content not included)... Normal [facility] Encounters Encounter Date Encounter Type Care Provider Facility Start: 05-07-2024 End: 05-07-2024 ambulatory OMAR ROLAND Not Available Start: 05-05-2024 End: 05-05-2024 ambulatory OMAR ROLAND Not Available Start: 04-23-2024 End: 04-23-2024 ambulatory OMAR ROLAND Not Available Start: 02-14-2024 ambulatory None Provider Facility: [facility] Start: 04-29-2023 End: 04-29-2023 ambulatory Obdulio MACKEY Facility:[facility] Payers Date Payer Category Payer Unknown [id number] 2021 Medicare [id number] 1950 Unknown [id number] 2.16.8 [id number] 1950 Unknown [id number] 2.16.8 [id number] 1950 Unknown [id number] 2.16.84 [id number] 1950 Unknown [id number] 2.16.84 [id number] 1950 Unknown [id number] 2.16.84 [id number] 1950 Unknown [id number] 2.16.84 [id number] 1950 Unknown [id number] 2.16.84 [id number] Medication management note 02-19-2024 Note Date & Type Note Facility 02-19-2024 Note [id number] [facility] Clinical Note 04-29-2023 Note Date & Type Note Facility 04-29-2023 Note Patient Education Ma terials Follows: Hypertension, Adult High blood pressure (hypertension) is when the force of blood pumping through the arteries is too strong. The arteries are the blood vessels that carry blood from the heart throughout the body. Hypertension forces the heart to work harder to pump blood and may cause arteries to become narrow or stiff. Untreated or uncontrolled hypertension can lead to a heart attack, heart failure, a stroke, kidney disease, and other problems. A blood pressure reading consists of a higher number over a lower number. Ideally, your blood pressure should be below 120/80. The first ( top ) number is called the systolic pressure. It is a measure of the pressure in your arteries as your heart beats. The second ( bottom ) number is called the diastolic pressure. It is a measure of the pressure in your arteries as the heart relaxes. What are the causes? The exact cause of this condition is not known. There are some conditions that result in high blood pressure. What increases the risk? Certain factors may make you more likely to develop high blood pressure. Some of these risk factors are under your control, including: ? Smoking. ? Not getting enough exercise or physical activity. ? Being overweight. ? Having too much fat, sugar, calories, or salt (sodium) in your diet. ? Drinking too much alcohol. Other risk factors include: ? Having a personal history of heart disease, diabetes, high cholesterol, or kidney disease. ? Stress. ? Having a family history of high blood pressure and high cholesterol. ? Having obstructive sleep apnea. ? Age. The risk increases with age. What are the signs or symptoms? High blood pressure may not cause symptoms. Very high blood pressure (hypertensive crisis) may cause: ? Headache. ? Fast or irregular heartbeats (palpitations). ? Shortness of breath. ? Nosebleed. ? Nausea and vomiting. ? Vision changes. ? Severe chest pain, dizziness, and seizures. How is this diagnosed? This condition is diagnosed by measuring your blood pressure while you are seated, with your arm resting on a flat surface, your legs uncrossed, and your feet flat on the floor. The cuff of the blood pressure monitor will be placed directly against the skin of your upper arm at the level of your heart. Blood pressure should be measured at least twice using the same arm. Certain conditions can cause a difference in blood pressure between your right and left arms. If you have a high blood pressure reading during one visit or you have normal blood pressure with other risk factors, you may be asked to: ? Return on a different day to have your blood pressure checked again. ? Monitor your blood pressure at home for 1 week or longer. If you are diagnosed with hypertension, you may have other blood or imaging tests to help your health care provider understand your overall risk for other conditions. How is this treated? This condition is treated by making healthy lifestyle changes, such as eating healthy foods, exercising more, and reducing your alcohol intake. You may be referred for counseling on a healthy diet and physical activity. Your health care provider may prescribe medicine if lifestyle changes are not enough to get your blood pressure under control and if: ? Your systolic blood pressure is above 130. ? Your diastolic blood pressure is above 80. Your personal target blood pressure may vary depending on your medical conditions, your age, and other factors. Follow these instructions at home: Eating and drinking ? Eat a diet that is high in fiber and potassium, and low in sodium, added sugar, and fat. An example of this eating plan is called the DASH diet. DASH stands for Dietary Approaches to Stop Hypertension. To eat this way: ? Eat plenty of fresh fruits and vegetables. Try to fill one half of your plate at each meal with fruits and vegetables. ? Eat whole grains, such as whole-wheat pasta, brown rice, or whole-grain bread. Fill about one fourth of your plate with whole grains. ? Eat or drink low-fat dairy products, such as skim milk or low-fat yogurt. ? Avoid fatty cuts of meat, processed or cured meats, and poultry with skin. Fill about one fourth of your plate with lean proteins, such as fish, chicken without skin, beans, eggs, or tofu. ? Avoid pre-made and processed foods. These tend to be higher in sodium, added sugar, and fat. ? Reduce your daily sodium intake. Many people with hypertension should eat less than 1,500 mg of sodium a day. ? Do not drink alcohol if: ? Your health care provider tells you not to drink. ? You are , may be , or are planning to become . ? If you drink alcohol: ? Limit how much you have to: ? 0?1 drink a day for women. ? 0?2 drinks a day for men. ? Know how much alcohol is in your drink. In the [place] one drink equals one 12 oz bottle of beer (355 mL), one 5 oz glass of wine (148 mL (more content not included)... [facility] Summary Purpose Family History No Family History Records FoundNo Family History Records Found Advance Directives No Advanced Directives Records FoundNo Advanced Directives Records Found Additional Source Comments (unrecognized sect ion and content) No Status Records FoundNo Status Records Found INFORMATION SOURCE (unrecogn ized section and content) DATE CREATED AUTHOR 04/17/[address] [facility] DATE CREATED AUTHOR AUTHOR'S TAE ATTRACY 05/10/2024 [facility] FOR RECORDS PERTAINING TO PATIENTS WHO ARE OR HAVE BEEN ENROLLED IN A CHEMICAL DEPENDENCY/SUBSTANCEABUSE PROGRAM, SOME INFORMATION MAY BE OMITTED. This clinical summary was aggregated from multiple sources. Caution should be exercised in using it in the provision of clinical care. This summary normalizes information from multiple sources, and as a consequence, information in this document may materially change the coding, format and clinical context of patient data. In addition, data may be omitted in some cases. CLINICAL DECISIONS SHOULD BE BASED ON THE PRIMARY CLINICAL RECORDS. [facility] [employer] provides no warranty or guarantee of the accuracy or completeness of information in this document.
[2024-05-18 10:26] VITALS: BP 126/76; PULSE 65; TEMP 36.6; O2SAT 99
[2024-05-18 10:57] VITALS: BP 142/70; PULSE 70; O2SAT 98
[2024-05-18 10:58] VITALS: BP 128/73; PULSE 68; O2SAT 97
[2024-05-18] MEDS: 0.9 % SODIUM CHLORIDE 10 ML SYRINGE - SALINE FLUSH INJ (10:59)
[2024-05-18] MEDS: IOHEXOL 240 MG/ML - 10 ML VIAL INJ (10:59)
[2024-05-18] MEDS: BUPIVACAINE HCL 0.25% PF 25 MG/10 ML VIAL INJ (10:59)
[2024-05-18] MEDS: LIDOCAINE HCL 2% 400 MG/20 ML MDV 5 ML INJ (11:00)
[2024-05-18] MEDS: TRIAMCINOLONE ACETONIDE 40 MG/ML VIAL 80 MG INJ (11:00)
--- NOTE | 2024-05-18 11:03 | P.ON_ITS ---
Date of procedure: 05/18/24 Pre-op diagnosis: Pain due to lumbar stenosis with neurogenic claudication Post-op diagnosis: same as pre-op Procedure: Procedure: Right L4-5, L5-S1 transforaminal epidural steroid injection Medications: Bupivacaine 0.25% 2cc, lidocaine 2% 1cc, kenalog 80mg The patient was seen and examined in the preoperative holding area.? Informed consent was obtained and placed on the chart.? Patient was brought to the medical procedure unit and placed in the prone position where a timeout was completed verifying the correct patient, procedure site, position, and planned special equipment using sterile aseptic technique.? Under direct fluoroscopic visualization a 25-gauge Quincke tipped spinal needle was advanced to the designated neural foramen where contrast dye was injected to show adequate spread.? The needle was inserted at level right L4-5. There was no evidence of vascular or adverse uptake.? Epidural spread was appreciated.? The above- mentioned injectate was then placed in a 1.5 mL aliquot preceded by negative aspiration.? The needle was removed. The needle was inserted and the procedure repeated at level right L5-S1.? The surgery site was covered.? Patient was taken to the postprocedural recovery area and monitored for an appropriate length of time before found suitable for discharge in the accompaniment of a responsible adult. Anesthesia: Local Surgeon: J Carlos Arriola Pathology: none sent Condition: stable Disposition: no change
== END 2024-05-18 11:09 | disposition home or self-care (01) ==
PROVIDERS: Visit Provider Anesthesiology
DX: M48.062 Spinal stenosis, lumbar region with neurogenic claudication (principal)
CPT/HCPCS: 64483; 64484; J0665; J3301; Q9966

== ENCOUNTER 2024-05-21 13:55 | Outpatient (OUT) | payer MEDICARE, OTHER, SELFPAY ==
--- NOTE | 2024-05-21 14:34 | P.CN_ITS ---
Consult Note: HPI Data of Consult Patient: new to practice Consult date: 05/11/24 Requesting Physician: Madison Kirby NP Primary Care Provider: Non-Staff Physician, Consult Narrative Reason for consult: low back, right hip and leg pain Narrative: 74yom who presents for evaluation. worsening right back, hip, leg pain that was initially worked up for right hip disease, but now thought to be more spinal related. imaging reviewed, which shows moderate to severe stenosis at l4-5 and l5-s1. has engaged in a series of provider directed home exercises >6 weeks, as well as physical therapy, without lasting benefit. uses otc pain meds as needed. denies adverse med side effects. recently underwent right L4/5 L5/S1 TFESI with 100% improvement ongoing cc:: CC: Madison Kirby NP Review of Systems ROS Status of ROS 10 or more systems reviewed and unremark able except as noted in history and below Musculoskeletal Denies: back pain or extremity pain Meds Home Medications and Allergies Home Medications ?Medication ?Instructions ?Recorded ?Confirmed ?Type amantadine HCl 100 mg capsule 100 mg PO BID 05/11/24 05/11/24 History lansoprazole 30 mg capsule,delayed 30 mg PO DAILY 05/11/24 05/11/24 History release magnesium 250 mg tablet 250 mg PO DAILY 05/11/24 05/11/24 History mirtazapine 15 mg tablet 15 mg PO DAILY 05/11/24 05/11/24 History carbidopa 25 mg-levodopa 250 mg 1 tab PO QID 05/21/24 05/21/24 History tablet Allergies Allergy/AdvReac Type Severity Reaction Status Date / Time latex Allergy Unknown blisters Verified 05/11/24 15:10 Penicillins Allergy Unknown Rash Verified 05/11/24 15:10 mycins Allergy Unknown Unknown Uncoded 05/11/24 15:10 Exam Narrative Exam Narrative: Psych-alert and oriented x 3. Attentive and appropriate, constitutionally normal, displays normal mood and affect per situation. There are no obvious deficits in memory, reasoning, or intellect.? Skin-no obvious rashes, bruising, erythema noted to the patient's area of pain.? Extremities- extremities are warm with minimal edema and palpable pulses. Lumbar-tenderness to palpation noted in the lumbar spine and paraspinal musculature. Pain is not elicited with flexion, extension, and lateral rotation of the lumbar spine. Range of motion is not diminished with these motions. Facet loading maneuvers are negative.? Strength-noted to be unremarkable Sensory-no notable sensory deficits in the bilateral lower extremities to touch or pinprick in all dermatomal distributions Coordination remains intact.? Gait remains non-antalgic. Assessment and Plan Assessment and Plan (1) Lumbar stenosis with neurogenic claudication: Plan 100% improvement ongoing from Right L4/5 L5/S1 TFESI f/u 3 months or as needed
== END 2024-05-21 13:56 | disposition home or self-care (01) ==
LOC: PM 13:55
PROVIDERS: Visit Provider Nurse Practitioner
DX: M48.062 Spinal stenosis, lumbar region with neurogenic claudication (principal)
CPT/HCPCS: G0463